=== PATIENT | female | born 1960 | race Caucasian/White ===

== ENCOUNTER → 2019-06-01 | Outpatient (CLI) | payer OTHER ==
[~2019-06-01] MED LIST: ADULT LOW DOSE81 MG; B-100 COMPLEX1 EAC1; CALCIUM OYSTER500 MG; CIPROFLOXACIN500 M1 PO; DIOVAN HCT 1601 EACH; EFFEXOR XR75 MG; FLAGYL500 MG PO; NORCO 5-325 TA1 EACH PO; VITAMIN D3400 UNI1
== END ==
LOC: M.MRI 11:19
DX: M54.6 Pain in thoracic spine (principal); M54.5 Low back pain; Z88.8 Allergy status to other drugs, medicaments and biological substances

== ENCOUNTER → 2019-12-05 | Outpatient (CLI) | payer OTHER | LOC: M.LAB 12:34 | DX: Z20.828 Contact with and (suspected) exposure to other viral communicable diseases (principal); R68.89 Other general symptoms and signs; R05 Cough; R43.0 Anosmia ==

== ENCOUNTER 2021-05-12 14:16 | Emergency (ER) | payer OTHER ==
[~2021-05-12] VITALS: Ht 160 cm; Wt 94.3 kg
[2021-05-12] MEDS ORDERED: LIPITOR 40 MG T40 M1 PO (14:28)
[2021-05-12] MEDS ORDERED: HYDROCHLOROTHIA25 M1 PO (14:28)
[2021-05-12] MEDS ORDERED: LOSARTAN POTASS50 MG PO (14:29)
[2021-05-12] MEDS ORDERED: DULOXETINE HCL60 MG PO (14:29)
[2021-05-12] MEDS ORDERED: MULTIVITAMIN (14:30)
[2021-05-12 14:40] LABS: ABSOLUTE BASOPHILS 0.1 thou/uL (0.0-0.2); ABSOLUTE EOSINOPHILS 0.1 thou/uL (0.0-0.7); ABSOLUTE LYMPHOCYTES 1.3 thou/uL (0.8-5.3); ABSOLUTE MONOCYTES 0.5 thou/uL (0.0-1.2); ABSOLUTE NEUTROPHILS 4.1 thou/uL (1.6-8.1); BASOPHILS 0.9 %; EOSINOPHILS 2.1 %; LYMPHOCYTES 20.9 %; MONOCYTES 8.4 %; MPV 8.4 fl. (7.2-11.1); NUCLEATED RBCS 0 /100WBC; PLATELET COUNT* 266 thou/uL (150-400); POLYS 67.7 %; RBC 4.84 mil/uL (4.20-5.00); RDW-CV 12.7 % (10.5-14.5); WBC 6.1 thou/uL (4.0-11.0)
[2021-05-12 14:49] LABS: CALCIUM 9.5 mg/dL (8.5-10.1); CREATININE 0.9 mg/dL (0.6-1.3); POTASSIUM 3.9 mmol/L (3.5-5.1)
[2021-05-12 15:00] LABS: ALBUMIN 3.5 g/dL (3.4-5.0); MAGNESIUM 1.9 mg/dL (1.8-2.4); TOTAL BILIRUBIN 0.6 mg/dL (<0.1-1.0); TOTAL PROTEIN 7.6 g/dL (6.4-8.2)
[2021-05-12 15:17] VITALS: BP 131/60
--- NOTE | 2021-05-12 15:20 | EKG ---
[place] [address] ELECTROCARDIOGRAM REPORT Name: SIRISHA BARRAZA Room: [facility]#: [id number] Admission: 05/12/21 Attend Phys: Discharge: 05/12/21 Date of : 56 Date of Service: 05/12/21 1418 Report #: [id number] THIS REPORT FOR: //name// [facility] ED Test Date: 2021-05-12 Test Time: 14:18:48 Pat Name: SIRISHA BARRAZA Department: Room: Gender: Sponge Buffer: : 1960 Requested By: Phillip Arthur Order Number: [id number] MD: Ramiro Ortiz Measurements Intervals [place] Rate: 71 P: 57 RI: 143 QRS: -29 QRSD: 98 T: 49 QT: 393 QTc: 428 Interpretive Statements Sinus rhythm Left ventricular hypertrophy Inferior infarct, old Anterior Q waves, possibly due to LVH No previous ECG available for comparison Electronically Signed On 05-12-2021 15:20:26 CDT by Ramiro Ortiz [email or web address] <ELECTRONICALLY SIGNED> By: Ramiro Ortiz MD, [facility] 05/12/21 1520 1418 1418 Ramiro Ortiz MD, [facility] /EPI
== END 2021-05-12 15:17 | disposition home or self-care (01) ==
LOC: M.ERS 14:16
PROVIDERS: Family Medicine
DX: R00.2 Palpitations (principal); Z79.899 Other long term (current) drug therapy; Z79.82 Long term (current) use of aspirin; Z88.5 Allergy status to narcotic agent; Z88.1 Allergy status to other antibiotic agents; Z88.6 Allergy status to analgesic agent